=== PATIENT | female | born 1975 | race Caucasian/White ===

== ENCOUNTER 2018-11-19 21:46 | Outpatient (REF) | payer MEDICAID, SELFPAY | END 2018-11-19 22:06 | LOC: NCHCN 21:46 | PROVIDERS: PCP Nurse Practitioner Family; Visit Provider Family Medicine | DX: N39.0 Urinary tract infection, site not specified (principal) | CPT/HCPCS: 87077; 87086; 87186 ==

== ENCOUNTER 2019-11-23 20:54 | Outpatient (REF) | payer MEDICAID, SELFPAY ==
[2019-11-26 01:44] LABS: SARS-CoV-2 RNA Undetected (Undetected)
[2019-11-26 06:29] LABS: SARS-CoV-2 Specimen Source Nasopharynx
== END 2019-11-23 21:14 ==
LOC: NCHCN 20:54
PROVIDERS: PCP Nurse Practitioner Family; Visit Provider Family Medicine
DX: Z11.59 Encounter for screening for other viral diseases (principal)
CPT/HCPCS: U0003